=== PATIENT | female | born 1965 | race Caucasian/White ===

== ENCOUNTER 2016-04-15 13:07 | Emergency (ER) | payer OTHER | END 2016-04-15 15:32 | disposition home or self-care (01) | LOC: D.ER 13:07 | DX: R51 Headache (principal); M79.7 Fibromyalgia; I10 Essential (primary) hypertension; E03.9 Hypothyroidism, unspecified; M32.9 Systemic lupus erythematosus, unspecified; M06.9 Rheumatoid arthritis, unspecified ==